=== PATIENT | female | born 1945 ===

== ENCOUNTER 2016-12-17 09:13 | Day surgery (SDC) | payer OTHER, MEDICAID ==
[2016-12-17 11:19] VITALS: BMI 27.3
[2016-12-17] MEDS ORDERED: Lactated Ringer's 500 ML IV ONE ×2 (12:47)
[2016-12-17] MEDS ORDERED: Propofol 10 mg/ml Inj (20 ML) ONE ×2 (13:06→13:14)
[2016-12-17] MEDS ORDERED: Midazolam 2 MG/2 ML VIAL ONE (13:06)
[2016-12-17 13:10] VITALS: O2SAT 100
[2016-12-17] MEDS ORDERED: Lidocaine Hydrochloride 5 ML INJ ONE (13:13)
[2016-12-17] MEDS ORDERED: Simethicone 40 mg/0.6 ml Liquid (30 ml) ONE (13:20)
[2016-12-17 14:00] VITALS: TEMP 97.7
[2016-12-17 14:44] VITALS: BP 135/67; PULSE 87; RESP 18
== END 2016-12-17 14:41 | disposition home or self-care (01) ==
LOC: C.ENDO 09:13
PROVIDERS: ATTEND Internal Medicine Gastroenterology
DX: D12.5 Benign neoplasm of sigmoid colon (principal); K64.8 Other hemorrhoids
CPT/HCPCS: 45388; 88305; J2250; J2704; J7120